=== PATIENT | female | born 2000 | race Caucasian/White ===

== ENCOUNTER 2020-02-23 06:48 | Emergency (ER) | payer OTHER ==
[~2020-02-23] VITALS: Ht 165.1 cm; Wt 70.3 kg
[2020-02-23] MEDS ORDERED: INDERAL LA120 M1 PO (07:40)
[2020-02-23] MEDS ORDERED: ZOLOFT100 MG PO (07:40)
[2020-02-23 07:53] LABS: URINE BILIRUBIN NEGATIVE (Negative); URINE BLOOD NEGATIVE (Negative); URINE CLARITY CLEAR; URINE COLOR YELLOW; URINE GLUCOSE-RANDOM* NEGATIVE (Negative); URINE KETONES NEGATIVE (Negative); URINE NITRITE-REFLEX NEGATIVE (Negative); URINE PROTEIN (DIPSTICK) NEGATIVE (Negative); URINE UROBILINOGEN 0.2 E.U./dl (0.2-1.0)
[2020-02-23 07:55] LABS: ABSOLUTE NEUTROPHILS 8.2 thou/uL (1.4-8.2); BASOPHILS 0.5 % (0.0-2.0); HEMATOCRIT 38.4 % (37.0-47.0); HEMOGLOBIN 12.5 gm/dL (12.0-15.0); LYMPHOCYTES 20.3 % (24.0-44.0); MCH 31.1 pg (26.0-34.0); MCHC 32.5 g/dL (28.0-37.0); MCV 95.7 fL (80.0-100.0); MONOCYTES 6.2 % (1.0-8.0); PLATELET COUNT 230 thou/uL (150-400); RBC 4.02 mil/uL (4.20-5.00); RDW 13.4 % (10.5-14.5); WBC 11.4 thou/uL (4.0-11.0)
[2020-02-23 07:55] LABS: URINE LEUKOCYTES-REFLEX 1+ (Negative)
[2020-02-23 08:04] LABS: ANION GAP 9 mmol/L (7-16); BUN 6 mg/dL (7-18); CALCIUM 8.3 mg/dL (8.5-10.1); CHLORIDE 103 mmol/L (98-107); CO2 27 mmol/L (21-32); CREATININE 0.9 mg/dL (0.6-1.0); GLUCOSE 87 mg/dL (74-106); POTASSIUM 3.4 mmol/L (3.5-5.1); SODIUM 139 mmol/L (136-145)
[2020-02-23 08:06] LABS: BACTERIA-REFLEX 1-9 Few /HPF (None Seen); CASTS None Seen /LPF (None Seen); CRYSTALS None Seen /LPF (None Seen); SQUAMOUS 0-3 Few /LPF (0-3); URINE RBC None Seen /HPF (0-2); URINE WBC-REFLEX 6-15 Few /HPF (0-5)
[2020-02-23 08:12] LABS: ALBUMIN 3.7 g/dL (3.4-5.0); DIRECT BILIRUBIN < 0.1 mg/dL (<0.1-0.2); SGOT 13 U/L (15-37); SGPT 15 U/L (30-65); TOTAL BILIRUBIN 0.2 mg/dL (<0.1-1.0); TOTAL PROTEIN 7.4 g/dL (6.4-8.2)
[2020-02-23] MEDS ORDERED: KEFLEX500 M1 PO (08:49)
[2020-02-23 09:02] VITALS: BP 118/73
--- NOTE | 2020-02-23 11:02 | EKG ---
[facility] [place] [address] ELECTROCARDIOGRAM REPORT Name: COLIN CASAS Room #: [facility]P [facility].#: [id number] Admission: 02/23/20 Attend Phys: Discharge: 02/23/20 Date of : [birth year] Report #: [id number] THIS REPORT FOR: cc: FAM - Bee family physician/PCP FAM - Bee family physician/PCP Pancho Miller MD ~ THIS REPORT FOR: //name// [facility] ED Test Date: 2020-02-23 Test Time: 07:25:45 Pat Name: COLIN KING Department: Room: Gender: Student [employer] Consultant: kkowen : 2000 Requested By: Jen Herman Order Number: [id number] MD: Pancho Miller Measurements Intervals [place] Rate: 78 P: 69 CT: 172 QRS: 63 QRSD: 93 T: 36 QT: 384 QTc: 438 Interpretive Statements Sinus rhythm Borderline Q waves in lateral leads No previous ECG available for comparison Electronically Signed On 02-23-2020 11:00:15 CDT by Pancho Miller [email or web address] <ELECTRONICALLY SIGNED> By: Pancho Miller MD 02/23/20 1100 0725 07 Pancho Miller MD /[email or web address]
== END 2020-02-23 09:02 | disposition home or self-care (01) ==
LOC: ER 06:48
PROVIDERS: Emergency Medicine
DX: N39.0 Urinary tract infection, site not specified (principal); R53.83 Other fatigue; R07.89 Other chest pain; R51 Headache; L02.211 Cutaneous abscess of abdominal wall; F17.290 Nicotine dependence, other tobacco product, uncomplicated; Z79.899 Other long term (current) drug therapy

== ENCOUNTER 2020-08-17 13:43 | Emergency (ER) | payer OTHER ==
[~2020-08-17] VITALS: Ht 165.1 cm; Wt 68.0 kg
[~2020-08-17 13:43] MED LIST: INDERAL LA120 M1 PO; KEFLEX500 M1 PO; ZOLOFT100 MG PO
[2020-08-17 13:44] VITALS: BP 148/89
[2020-08-17] MEDS ORDERED: BACTRIM DS TAB1 EACH PO (14:14)
== END 2020-08-17 14:26 | disposition home or self-care (01) ==
LOC: ER 13:43
DX: L02.416 Cutaneous abscess of left lower limb (principal); Z79.899 Other long term (current) drug therapy